=== PATIENT | male | born 1995 | race Caucasian/White ===

== ENCOUNTER 2017-06-29 08:36 | Emergency (ER) | payer OTHER ==
[2017-06-29] MEDS ORDERED: GADODIAMIDE PF 287 MG/ML 20 ML VIAL (for RAD MRI) IVCONTRAST ONE (08:37)
[2017-06-29 08:50] VITALS: BP 156/77; PULSE 75; RESP 17; TEMP 98.1; O2SAT 98
[2017-06-29] MEDS: ONDANSETRON HCL 4 MG/2 ML VIAL IVP ONE ×2 (09:00→09:05)
[2017-06-29] MEDS ORDERED: SODIUM CHLORIDE 0.9% FLUSH 10 ML FLUSH IVF PRN (09:00)
[2017-06-29] MEDS: HYDROmorphone HCL PF 1 MG/ML VIAL IVS ONE ×2 (09:00→09:05)
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
[2017-06-29 10:09] VITALS: BP 173/71; PULSE 61; RESP 17; O2SAT 97
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
[2017-06-29 11:24] LABS: ALT (GPT) 18 U/L (12-78); ANION GAP 6 MEQ/L (5-15); AST (GOT) 18 U/L (15-37); BICARBONATE 28.2 MEQ/L (21.0-32.0); BLOOD UREA NITROGEN 8 MG/DL (7-18); CHLORIDE 108 MEQ/L (98-107); GLOMERULAR FILTRATION RATE 102 ML/MIN (>89); POTASSIUM 3.7 MEQ/L (3.5-5.1); SODIUM (NA) 142 MEQ/L (136-145)
[2017-06-29 11:27] LABS: ALKALINE PHOSPHATASE 82 U/L (45-117); TOTAL BILIRUBIN ADULT 0.6 MG/DL (0.2-1.0)
[2017-06-29 13:10] VITALS: BP 144/60; PULSE 64; RESP 17; O2SAT 99
--- NOTE | 2017-06-29 14:22 | RADRPT ---
EXAM DATE/TIME: 06/29/2017 13:49 [facility] COMPARISON: CT BRAIN W/O CONTRAST, June 29, 2017, 9:18. INDICATIONS : Mass. CONTRAST: 20 cc Omniscan (gadodiamide) IV MEDICAL HISTORY : None. SURGICAL HISTORY : None. ENCOUNTER: Initial ACUITY: 1 day PAIN SCORE: 0/10 LOCATION: Head. TECHNIQUE: Multiplanar, multisequence MRI of the brain was performed both prior to and following the administrat ion of paramagnetic contrast. FINDINGS: CEREBRUM: The ventricles are normal for age. No evidence of midline shift, mass lesion, hemorrhage or acute in farction. No extraaxial fluid collections are seen. The pituitary gland and suprasellar cistern are normal in configuration. WHITE MATTER: No significant signal abnormalities are seen in the white matter. POSTERIOR FOSSA: The cerebellum and brainstem are intact. The 4th ventricle is midline. The cerebellopontine angle is unremarkable. The cerebellar tonsils are normal in position. DIFFUSION IMAGING: No focal areas of restricted diffusion are seen. No evidence of acute infarction. EXTRACRANIAL: The visualized portions of the orbits are intact. There is a small mucus retention cyst in the anteri or aspect of the left maxillary sinus. POST-CONTRAST: No abnormal areas of parenchymal or dural enhancement. No evidence of blood-brain barrier breakdown. CONCLUSION: 1. No mass lesion identified. 2. Small mucus retention cyst in the anterior aspect of the left maxillary sinus. Herbie Kirkland MD on June 29, 2017 at 14:16 Board Certified Radiologist. This report was verified electronically.
== END 2017-06-29 14:47 | disposition home or self-care (01) ==
LOC: NEPC 08:36 → EDBD 08:36 → NEPC 14:47
DX: S39.012A Strain of muscle, fascia and tendon of lower back, initial encounter (principal); S29.019A Strain of muscle and tendon of unspecified wall of thorax, initial encounter; V49.49XA Driver injured in collision with other motor vehicles in traffic accident, initial encounter
CPT/HCPCS: 70450; 70553; 71010; 72072; 72100; 72125; 80053; 99285; A9579; J1170; J2405